=== PATIENT | female | born 1960 | race Caucasian/White ===

== ENCOUNTER 2025-09-10 13:06 | Emergency (ER) | payer MEDICARE, OTHER ==
[2025-09-10] MEDS ORDERED: Dexamethasone 10 MG/ML VIAL ONE (13:15)
[2025-09-10 13:59] LABS: Glucose, Urine (Dipstick) Negative (Negative); Leukocyte Trace (Negative); Protein, Urine (Dipstick) Negative (Neg-Trace); Specific Gravity, Urine 1.010 (1.005-1.030)
[2025-09-10 14:00] LABS: CAUTI Indications for Culture Pelvic or flank pain
[2025-09-10 14:04] LABS: Bacteria/HPF None Seen HPF (None Seen); RBC/HPF 0-3 HPF (0-3); WBC/HPF 0-3 HPF (0-3)
[2025-09-10 14:05] LABS: Urine Culture Reflex No No
== END 2025-09-10 14:30 | disposition home or self-care (01) ==
LOC: MADERS 13:06
DX: M54.6 Pain in thoracic spine (principal); D35.00 Benign neoplasm of unspecified adrenal gland; I10 Essential (primary) hypertension; E66.9 Obesity, unspecified
CPT/HCPCS: 72128; 81001; J1100; J1885; J2270; 96372